=== PATIENT | male | born 1985 | race African-American/Black ===

== ENCOUNTER 2017-11-15 15:55 | Emergency (ER) | payer SELFPAY ==
[2017-11-15 16:37] LABS: ADD MAN DIFF? NO
[2017-11-15 16:41] LABS: BASO % 1 % (0-3); EOS # 0.1 x10^3/uL (0.0-0.7); EOS % 1 % (0-3); HEMATOCRIT 42.2 % (39.0-53.0); LYMPH # 2.9 x10^3/uL (1.0-4.8); LYMPH % 53 % (24-48); MEAN CORPUSCULAR HEMOGLOBIN 29 pg (25-35); MEAN CORPUSCULAR HGB CONC 33 g/dL (31-37); MEAN CORPUSCULAR VOLUME 88 fL (79-100); MONO # 0.4 x10^3/uL (0.0-1.1); MONO % 8 % (0-9); NEUT # 2.1 x10^3uL (1.8-7.7); NEUT % 38 % (31-73); PLATELET COUNT 136 x10^3/uL (140-400); RED BLOOD COUNT 4.78 x10^6/uL (4.30-5.70); RED CELL DISTRIBUTION WIDTH 14.5 % (11.5-14.5); WHITE BLOOD COUNT 5.6 x10^3/uL (4.0-11.0)
[2017-11-15] MEDS: ONDANSETRON PF 4 MG/2 ML VIAL. IV (16:49)
[2017-11-15] MEDS: IV NORMAL SALINE 1000ML BAG 1,000 ML IV (16:50)
[2017-11-15] MEDS: fentaNYL PF VIAL 100 MCG/2 ML VIAL IV (16:52)
[2017-11-15 16:53] LABS: D-DIMER < 0.27 ug/mlFEU (0.00-0.50)
[2017-11-15] MEDS: ASPIRIN CHEWABLE 81 MG TABLET. PO (16:53)
[2017-11-15 16:55] LABS: ANION GAP 6 (6-14); BLOOD UREA NITROGEN 15 mg/dL (8-26); BUN/CREATININE RATIO 14 (6-20); CALCIUM 9.5 mg/dL (8.5-10.1); CARBON DIOXIDE 28 mmol/L (21-32); CHLORIDE 104 mmol/L (98-107); CREATININE 1.1 mg/dL (0.7-1.3); GFR 93.3; GLUCOSE 92 mg/dL (70-99); POTASSIUM 4.2 mmol/L (3.5-5.1); SODIUM 138 mmol/L (136-145)
[2017-11-15 17:01] LABS: ALBUMIN 3.6 g/dL (3.4-5.0); ALBUMIN/GLOBULIN RATIO 0.9 (1.0-1.7); ALK PHOS 83 U/L (46-116); ALT (SGPT) 37 U/L (16-63); AST (SGOT) 27 U/L (15-37); MAGNESIUM 1.8 mg/dL (1.8-2.4); TOTAL BILIRUBIN 0.6 mg/dL (0.2-1.0); TOTAL PROTEIN 7.7 g/dL (6.4-8.2)
[2017-11-15 17:04] LABS: TROPONINI < 0.017 ng/mL (0.000-0.055)
[2017-11-15 17:09] LABS: NT-PRO BNP 30 pg/mL (0-124)
[2017-11-15 17:09] LABS: CKMB INDEX 0.2 % (0-4); CKMB MASS 0.5 ng/mL (0.0-3.6); CREATINE KINASE 267 U/L (39-308)
[2017-11-15 17:49] LABS: SEDIMENTATION RATE 6 (0-15)
[2017-11-15 18:22] LABS: BILIRUBIN,URINE NEGATIVE (NEG); CLARITY,URINE CLEAR; COLOR,URINE YELLOW; GLUCOSE,URINE NEGATIVE (NEG); NITRITE,URINE NEGATIVE (NEG); PROTEIN,URINE NEGATIVE (NEG-TRACE); UROBILINOGEN,URINE 0.2 mg/dL (0.2 mg/dL)
[2017-11-15 18:29] LABS: BARBITURATES NEG (NEG); BENZODIAZEPINES NEG (NEG); CANNABINOIDS POS (NEG); COCAINE NEG (NEG); METHADONE NEG (NEG); OPIATES NEG (NEG); PHENCYCLIDINE NEG (NEG)
[2017-11-15 18:31] LABS: AMPHETAMINE/METHAMPHETAMINE NEG (NEG); ETHANOL, URINE NEG (NEG)
[2017-11-15 18:33] LABS: BACTERIA,URINE 0 /HPF (0-FEW); RBC,URINE OCC /HPF (0-2); SQUAMOUS EPITHELIAL CELL,UR FEW /LPF
== END 2017-11-15 19:00 | disposition home or self-care (01) ==
LOC: ER 15:55
DX: R07.89 Other chest pain (principal); R06.02 Shortness of breath; Z79.82 Long term (current) use of aspirin
CPT/HCPCS: 36415; 71046; 80053; 80307; 81001; 82553; 83735; 83880; 84484; 85025; 85379; 85651; 87086; 93005; 96361; 96374; 96375; 99285-25; J2405; J3010; J7030